=== PATIENT | female | born 1935 | race Caucasian/White ===

== ENCOUNTER 2021-09-08 15:51 | Inpatient (IN) | payer BC ==
[2021-09-08 16:15] VITALS: BMI 21.9
[2021-09-08 18:13] LABS: BASO % 1.2 % (0-2.0); HEMATOCRIT 40.1 % (32.4-45.2); HEMOGLOBIN 13.4 GM/dL (10.7-15.3); LYMPH % 23.7 % (8-40); MCHC 33.3 g/dl (32.0-36.0); MEAN CELL VOLUME 83.9 fl (80-96); MEAN PLT VOLUME 7.3 fl (7.5-11.1); MONO % 7.7 % (3.8-10.2); NEUT % 66.4 % (42.8-82.8); PLATELET COUNT 379 10^3/uL (134-434); RBC 4.79 M/mm3 (3.60-5.2); RDW 14.4 % (11.6-15.6); WHITE BLOOD COUNT 11.8 K/mm3 (4.0-10.0)
[2021-09-08 18:35] LABS: ALBUMIN 3.4 g/dl (3.4-5.0); BLOOD UREA NITROGEN 19.6 mg/dL (7-18); CALCIUM 9.6 mg/dL (8.5-10.1)
[2021-09-08 18:38] LABS: CREATININE 0.9 mg/dL (0.55-1.3)
[2021-09-08 18:40] LABS: BILIRUBIN,TOTAL 0.3 mg/dL (0.2-1); TOT PROT 7.5 g/dl (6.4-8.2)
[2021-09-08 18:47] LABS: PH,URINE 6.5 (5.0-8.0); URINE APPEARANCE CLOUDY; URINE BILIRUBIN NEGATIVE (NEGATIVE); URINE COLOR YELLOW; URINE GLUCOSE (UA) NEGATIVE (NEGATIVE); URINE KETONE NEGATIVE (NEGATIVE); URINE LEUK ESTERASE 3+ (NEGATIVE); URINE NITRITE NEGATIVE (NEGATIVE); URINE PROTEIN TRACE (NEGATIVE); URINE UROBILINOGEN 0.2 mg/dL (0.2-1.0)
[2021-09-08 19:12] LABS: URINE WBC 20-30 /uL (0-25.8)
[2021-09-08 19:13] LABS: EPI CELLS FEW /uL (0-25.1); URINE BACTERIA 2+ /uL (0-1359)
[2021-09-08] MEDS ORDERED: CEFTRIAXONE 1 GM in DEXTROSE 5%-WATER - 100 ML IVPB ONE (19:43)
[2021-09-08] MEDS ORDERED: CEFTRIAXONE 1 GM/50 ML BAG ONE (19:57)
[2021-09-08] MEDS ORDERED: LOSARTAN POTASSIUM 50 MG TABLET PO ONE (20:01)
[2021-09-08] MEDS ORDERED: LOSARTAN POTASSIUM 50 MG TABLET ONE (20:04)
[2021-09-08] MEDS ORDERED: ACETAMINOPHEN 1000 MG/100 ML VIAL IVPB ONE (20:11)
[2021-09-08] MEDS ORDERED: ACETAMINOPHEN INJECTION 100 ML IVPB ONE (20:30)
[2021-09-09 09:04] LABS: BASO % 0.7 % (0-2.0); EOS % 1.5 % (0-4.5); HEMATOCRIT 39.2 % (32.4-45.2); HEMOGLOBIN 13.2 GM/dL (10.7-15.3); LYMPH % 15.1 % (8-40); MCHC 33.6 g/dl (32.0-36.0); MEAN CELL VOLUME 83.2 fl (80-96); MEAN PLT VOLUME 7.2 fl (7.5-11.1); MONO % 6.1 % (3.8-10.2); NEUT % 76.6 % (42.8-82.8); PLATELET COUNT 369 10^3/uL (134-434); RBC 4.71 M/mm3 (3.60-5.2); RDW 14.2 % (11.6-15.6); WHITE BLOOD COUNT 11.1 K/mm3 (4.0-10.0)
[2021-09-09 09:25] LABS: ALBUMIN 3.4 g/dl (3.4-5.0)
[2021-09-09 09:26] LABS: BLOOD UREA NITROGEN 14.4 mg/dL (7-18)
[2021-09-09 09:28] LABS: CREATININE 0.7 mg/dL (0.55-1.3)
[2021-09-09 09:30] LABS: BILIRUBIN,TOTAL 0.5 mg/dL (0.2-1); TOT PROT 7.2 g/dl (6.4-8.2)
[2021-09-09] MEDS ORDERED: DEXTROSE 5%-WATER - 50 ML IVPB ONE (11:13)
[2021-09-09] MEDS ORDERED: cefTRIAXone SODIUM 1 GM VIAL ONE (11:13)
[2021-09-09] MEDS: CEFTRIAXONE 1 GM in DEXTROSE 5%-WATER - 50 ML IVPB SCH (11:19)
[2021-09-09] MEDS: FLUTICASONE PROP 0.05% 16 GM NASAL SPRAY NS SCH ×2 (11:20→21:41)
[2021-09-09] MEDS: LOSARTAN POTASSIUM 50 MG TABLET PO SCH (11:20)
[2021-09-09] MEDS: PANTOPRAZOLE SODIUM 40 MG VIAL IVPUSH SCH (11:44)
[2021-09-09] MEDS: ACETAMINOPHEN 1000 MG/100 ML VIAL IVPB PRN ×2 (13:20→20:48)
[2021-09-09] MEDS ORDERED: PT OWN MED DRAWER 7, Y5N ONE (21:00)
[2021-09-10 09:52] VITALS: BP 132/71; PULSE 100; TEMP 97.5
[2021-09-10] MEDS ORDERED: cefTRIAXone SODIUM 1 GM VIAL ONE (10:13)
[2021-09-10] MEDS ORDERED: DEXTROSE 5%-WATER - 50 ML IVPB ONE (10:13)
[2021-09-10] MEDS: FLUTICASONE PROP 0.05% 16 GM NASAL SPRAY NS SCH (10:22)
[2021-09-10] MEDS: CEFTRIAXONE 1 GM in DEXTROSE 5%-WATER - 50 ML IVPB SCH (10:22)
[2021-09-10] MEDS: PANTOPRAZOLE SODIUM 40 MG VIAL IVPUSH SCH (10:22)
[2021-09-10] MEDS: LOSARTAN POTASSIUM 50 MG TABLET PO SCH (10:23)
== END 2021-09-10 16:43 | disposition home or self-care (01) | DRG 690 ==
LOC: JER 15:51 → JERBED 20:29 → J6S 09-09 00:06
PROVIDERS: ADMIT Internal Medicine; ATTEND Family Medicine
DX: N39.0 Urinary tract infection, site not specified (principal); D72.829 Elevated white blood cell count, unspecified; I10 Essential (primary) hypertension; E78.5 Hyperlipidemia, unspecified
CPT/HCPCS: 36415; 71045-TC-FY; 80053; 81003; 85025; 87040; 87086; 93005; 93010; 99285-25; C9803; J0131; U0003; U0005

== ENCOUNTER 2022-02-16 20:22 | Observation (INO) | payer BC ==
[2022-02-16 21:25] LABS: BASO % 0.9 % (0-2.0); EOS % 0.4 % (0-4.5); HEMATOCRIT 40.3 % (32.4-45.2); HEMOGLOBIN 13.3 GM/dL (10.7-15.3); MEAN CELL VOLUME 81.9 fl (80-96); MEAN PLT VOLUME 6.8 fl (7.5-11.1); MONO % 9.2 % (3.8-10.2); NEUT % 79.5 % (42.8-82.8); PLATELET COUNT 317 10^3/uL (134-434); RBC 4.92 M/mm3 (3.60-5.2); RDW 14.3 % (11.6-15.6); WHITE BLOOD COUNT 14.5 K/mm3 (4.0-10.0)
[2022-02-16] MEDS ORDERED: ACETAMINOPHEN 1000 MG/100 ML BAG IVPB ONE (21:32)
[2022-02-16] MEDS ORDERED: ACETAMINOPHEN INJECTION 100 ML IVPB ONE (21:35)
[2022-02-16] MEDS ORDERED: KETOROLAC TROMETHAMINE 15 MG/ML VIAL IVPUSH ONE (21:41)
[2022-02-16 21:51] LABS: CALCIUM 9.8 mg/dL (8.5-10.1)
[2022-02-16 21:52] LABS: ALBUMIN 3.6 g/dl (3.4-5.0); BLOOD UREA NITROGEN 27.7 mg/dL (7-18); MAGNESIUM 2.2 mg/dL (1.8-2.4)
[2022-02-16 21:54] LABS: CREATININE 0.8 mg/dL (0.55-1.3)
[2022-02-16 21:56] LABS: BILIRUBIN,TOTAL 0.4 mg/dL (0.2-1); TOT PROT 7.3 g/dl (6.4-8.2)
[2022-02-16] MEDS ORDERED: KETOROLAC TROMETHAMINE 15 MG/ML VIAL ONE (22:05)
[2022-02-16] MEDS ORDERED: ONDANSETRON 4 MG/2 ML VIAL IVPUSH ONE (23:59)
[2022-02-16] MEDS ORDERED: morphine CARPU-JECT 4 MG/1 ML DISP.SYRIN IVPUSH ONE (23:59)
[2022-02-17] MEDS ORDERED: morphine SULFATE 4 MG/ML VIAL ONE (00:28)
[2022-02-17] MEDS ORDERED: ONDANSETRON 4 MG/2 ML VIAL ONE (00:28)
[2022-02-17 00:36] LABS: EPI CELLS 26 /uL (0-25.1); HYALINE CASTS 2 /uL (0-3.1); URINE APPEARANCE CLEAR; URINE BACTERIA 11 /uL (0-1359); URINE BILIRUBIN NEGATIVE (NEGATIVE); URINE COLOR YELLOW; URINE GLUCOSE (UA) NEGATIVE (NEGATIVE); URINE KETONE 1+ (NEGATIVE); URINE LEUK ESTERASE 1+ (NEGATIVE); URINE NITRITE NEGATIVE (NEGATIVE); URINE PROTEIN 1+ (NEGATIVE); URINE UROBILINOGEN 0.2 mg/dL (0.2-1.0); URINE WBC 155 /uL (0-25.8)
[2022-02-17] MEDS ORDERED: CEFTRIAXONE 1 GM in DEXTROSE 5%-WATER - 100 ML IVPB ONE (01:08)
[2022-02-17] MEDS ORDERED: CEFTRIAXONE 1 GM/50 ML BAG ONE (01:52)
[2022-02-17] MEDS ORDERED: MINERAL OIL ENEMA 133 ML ENEMA PR ONE (02:23)
[2022-02-17] MEDS ORDERED: SODIUM CHLORIDE 500 ML IV STA (02:30)
[2022-02-17 03:16] LABS: URINE RBC 51.9 /uL (0-23.9); YEAST MODERATE (NEGATIVE)
[2022-02-17] MEDS ORDERED: SODIUM PHOSPHATE/NA BIPHOS 133 ML ENEMA RC ONE (03:48)
[2022-02-17] MEDS ORDERED: ACETAMINOPHEN 1000 MG/100 ML BAG IVPB PRN (04:00)
[2022-02-17] MEDS: DEXTROSE 5%-NORMAL SALINE 1,000 ML IV SCH (05:14)
[2022-02-17] MEDS ORDERED: SODIUM PHOSPHATE/NA BIPHOS 133 ML ENEMA RC PRN (05:49)
[2022-02-17 09:18] LABS: BASO % 0.2 % (0-2.0); EOS % 0.1 % (0-4.5); HEMATOCRIT 39.8 % (32.4-45.2); HEMOGLOBIN 13.3 GM/dL (10.7-15.3); LYMPH % 3.8 % (8-40); MCH 27.2 pg (25.7-33.7); MCHC 33.3 g/dl (32.0-36.0); MEAN CELL VOLUME 81.6 fl (80-96); MEAN PLT VOLUME 7.2 fl (7.5-11.1); MONO % 6.1 % (3.8-10.2); NEUT % 89.8 % (42.8-82.8); PLATELET COUNT 297 10^3/uL (134-434); RBC 4.87 M/mm3 (3.60-5.2); RDW 14.2 % (11.6-15.6); WHITE BLOOD COUNT 15.1 K/mm3 (4.0-10.0)
[2022-02-17] MEDS: PANTOPRAZOLE 40 MG TABLET PO SCH (09:19)
[2022-02-17] MEDS: amLODIPine BESYLATE 5 MG TABLET (FP) PO SCH (09:19)
[2022-02-17] MEDS: LOSARTAN POTASSIUM 50 MG TABLET PO SCH (09:19)
[2022-02-17 09:33] LABS: CALCIUM 8.6 mg/dL (8.5-10.1)
[2022-02-17 09:34] LABS: BLOOD UREA NITROGEN 21.6 mg/dL (7-18)
[2022-02-17 09:37] LABS: CREATININE 0.7 mg/dL (0.55-1.3)
[2022-02-17] MEDS: AMMONIUM LACTATE 12% LOTION 225 GM BOTTLE TP SCH (14:39)
[2022-02-17] MEDS: POLYETHYLENE GLYCOL (HEALTHYLAX) 3350 17 GM PACKET PO SCH ×2 (14:39→21:43)
[2022-02-17] MEDS ORDERED: CEFTRIAXONE 1 GM in DEXTROSE 5%-WATER - 50 ML IVPB SCH (22:00)
[2022-02-18] MEDS: DEXTROSE 5%-NORMAL SALINE 1,000 ML IV SCH ×3 (01:16→22:03)
[2022-02-18] MEDS: POLYETHYLENE GLYCOL (HEALTHYLAX) 3350 17 GM PACKET PO SCH ×3 (05:34→21:56)
[2022-02-18 08:42] LABS: BASO % 0.8 % (0-2.0); EOS % 1.9 % (0-4.5); HEMATOCRIT 38.3 % (32.4-45.2); HEMOGLOBIN 12.5 GM/dL (10.7-15.3); LYMPH % 10.7 % (8-40); MCH 27.1 pg (25.7-33.7); MCHC 32.7 g/dl (32.0-36.0); MEAN PLT VOLUME 7.3 fl (7.5-11.1); MONO % 8.9 % (3.8-10.2); NEUT % 77.7 % (42.8-82.8); PLATELET COUNT 320 10^3/uL (134-434); RBC 4.61 M/mm3 (3.60-5.2); RDW 14.5 % (11.6-15.6); WHITE BLOOD COUNT 12.8 K/mm3 (4.0-10.0)
[2022-02-18 08:50] LABS: INR 1.06 (0.83-1.09); PROTHROMBIN TIME (PATIENT) 12.2 SEC (9.7-13.0)
[2022-02-18 08:53] LABS: ACTIVATED PTT 22.5 SECONDS (25.2-36.5)
[2022-02-18 09:14] LABS: CALCIUM 8.3 mg/dL (8.5-10.1)
[2022-02-18 09:15] LABS: BLOOD UREA NITROGEN 15.2 mg/dL (7-18)
[2022-02-18 09:18] LABS: CREATININE 0.6 mg/dL (0.55-1.3)
[2022-02-18] MEDS: amLODIPine BESYLATE 5 MG TABLET (FP) PO SCH (10:14)
[2022-02-18] MEDS: AMMONIUM LACTATE 12% LOTION 225 GM BOTTLE TP SCH (10:14)
[2022-02-18] MEDS: LOSARTAN POTASSIUM 50 MG TABLET PO SCH (10:14)
[2022-02-18] MEDS: PANTOPRAZOLE 40 MG TABLET PO SCH (10:14)
[2022-02-18] MEDS ORDERED: POTASSIUM CHLORIDE TABS 20 MEQ TABLET.ER (FP) PO ONE (18:27)
[2022-02-18] MEDS ORDERED: ACETAMINOPHEN 1000 MG/100 ML BAG IVPB PRN (18:50)
[2022-02-18] MEDS: LIDOCAINE 5% TOPICAL PATCH TP SCH (19:20)
[2022-02-18] MEDS: LIDOCAINE PATCH REMOVAL MC SCH (21:56)
[2022-02-19] MEDS: DEXTROSE 5%-NORMAL SALINE 1,000 ML IV SCH (06:05)
[2022-02-19] MEDS: POLYETHYLENE GLYCOL (HEALTHYLAX) 3350 17 GM PACKET PO SCH ×4 (09:40→21:03)
[2022-02-19] MEDS: PANTOPRAZOLE 40 MG TABLET PO SCH (09:41)
[2022-02-19] MEDS: amLODIPine BESYLATE 5 MG TABLET (FP) PO SCH (09:41)
[2022-02-19] MEDS: LOSARTAN POTASSIUM 50 MG TABLET PO SCH (09:41)
[2022-02-19] MEDS: LIDOCAINE 5% TOPICAL PATCH TP SCH (09:41)
[2022-02-19] MEDS: AMMONIUM LACTATE 12% LOTION 225 GM BOTTLE TP SCH (09:42)
[2022-02-19 14:08] VITALS: BMI 20.6
[2022-02-19] MEDS: LIDOCAINE PATCH REMOVAL MC SCH (21:04)
[2022-02-20] MEDS: POLYETHYLENE GLYCOL (HEALTHYLAX) 3350 17 GM PACKET PO SCH ×3 (05:07→22:17)
[2022-02-20] MEDS ORDERED: ERGOCALCIFEROL (VIT D2) 50,000 UNIT (1.25 MG) CAPSULE PO SCH (10:00)
[2022-02-20 10:08] LABS: CALCIUM 8.8 mg/dL (8.5-10.1)
[2022-02-20 10:09] LABS: BLOOD UREA NITROGEN 18.6 mg/dL (7-18)
[2022-02-20 10:12] LABS: CREATININE 0.5 mg/dL (0.55-1.3)
[2022-02-20] MEDS: LIDOCAINE 5% TOPICAL PATCH TP SCH (10:26)
[2022-02-20] MEDS: PANTOPRAZOLE 40 MG TABLET PO SCH (10:26)
[2022-02-20] MEDS: amLODIPine BESYLATE 5 MG TABLET (FP) PO SCH (10:26)
[2022-02-20] MEDS: LOSARTAN POTASSIUM 50 MG TABLET PO SCH (10:28)
[2022-02-20] MEDS: CALCIUM 500MG/VIT-D 200 UNITS COMBO TABLET (FP) PO SCH ×2 (10:28→22:18)
[2022-02-20] MEDS: AMMONIUM LACTATE 12% LOTION 225 GM BOTTLE TP SCH (10:29)
[2022-02-20] MEDS: CALCITONIN - SALMON SYNTHETIC 200 UNITS/SPRAY NS SCH (10:49)
[2022-02-20] MEDS: LIDOCAINE PATCH REMOVAL MC SCH (22:25)
[2022-02-20] MEDS ORDERED: ACETAMINOPHEN 325 MG TABLET (FP) PO PRN (23:34)
[2022-02-21] MEDS: POLYETHYLENE GLYCOL (HEALTHYLAX) 3350 17 GM PACKET PO SCH ×2 (05:31→13:55)
[2022-02-21] MEDS ORDERED: CEPHALEXIN MONOHYDRATE 500 MG CAPSULE (UD) PO SCH (10:00)
[2022-02-21] MEDS: CALCIUM 500MG/VIT-D 200 UNITS COMBO TABLET (FP) PO SCH (11:07)
[2022-02-21] MEDS: amLODIPine BESYLATE 5 MG TABLET (FP) PO SCH (11:08)
[2022-02-21] MEDS: LIDOCAINE 5% TOPICAL PATCH TP SCH (11:08)
[2022-02-21] MEDS: PANTOPRAZOLE 40 MG TABLET PO SCH (11:08)
[2022-02-21] MEDS: LOSARTAN POTASSIUM 50 MG TABLET PO SCH (11:08)
[2022-02-21] MEDS: AMMONIUM LACTATE 12% LOTION 225 GM BOTTLE TP SCH (11:09)
[2022-02-21] MEDS: CALCITONIN - SALMON SYNTHETIC 200 UNITS/SPRAY NS SCH (11:50)
[2022-02-21 14:39] VITALS: BP 122/62; PULSE 85; TEMP 98.9
[2022-02-23 12:09] LABS: SARS-CoV-2 NAA Not Detected (Not Detected)
== END 2022-02-21 18:21 ==
LOC: JER 20:22 → JERBED 02-17 02:13 → J8W 02-17 04:47
PROVIDERS: ADMIT Internal Medicine; ATTEND Family Medicine
PROC: 3E033NZ Introduction of Analgesics, Hypnotics, Sedatives into Peripheral Vein, Percutaneous Approach (ICD-10-PCS; principal; 2022-02-17)
PROC: 3E03329 Introduction of Other Anti-infective into Peripheral Vein, Percutaneous Approach (ICD-10-PCS; 2022-02-17)
PROC: 3E0333Z Introduction of Anti-inflammatory into Peripheral Vein, Percutaneous Approach (ICD-10-PCS; 2022-02-17)
PROC: 3E0337Z Introduction of Electrolytic and Water Balance Substance into Peripheral Vein, Percutaneous Approach (ICD-10-PCS; 2022-02-17)
DX: I25.10 Atherosclerotic heart disease of native coronary artery without angina pectoris (principal); I10 Essential (primary) hypertension; E78.5 Hyperlipidemia, unspecified; K21.9 Gastro-esophageal reflux disease without esophagitis; Z85.3 Personal history of malignant neoplasm of breast; R32 Unspecified urinary incontinence; M54.16 Radiculopathy, lumbar region; N20.0 Calculus of kidney; M54.9 Dorsalgia, unspecified; N39.0 Urinary tract infection, site not specified; D72.829 Elevated white blood cell count, unspecified; R10.9 Unspecified abdominal pain; R19.5 Other fecal abnormalities; M62.81 Muscle weakness (generalized); Z72.0 Tobacco use; Z88.8 Allergy status to other drugs, medicaments and biological substances; Z88.2 Allergy status to sulfonamides
CPT/HCPCS: 36415; 72128-TC; 72131-TC; 74018-TC-FY; 74177-TC; 80048; 80053; 81003; 83605; 83690; 83735; 84439; 84443; 84481; 85025; 85610; 85730; 86140; 87086; 87186; 93005; 93010; 96361; 96367; 96374; 96375; 97116-GP; 97161-GP; 99285-25; C9803-CS; G0378; Q9967; U0003; U0005

== ENCOUNTER 2022-09-27 14:31 | Inpatient (IN) | payer BC ==
[2022-09-27 16:10] LABS: HEMOGLOBIN 13.7 GM/dL (10.7-15.3); MCH 26.8 pg (25.7-33.7); MCHC 32.5 g/dl (32.0-36.0); MEAN CELL VOLUME 82.6 fl (80-96); MEAN PLT VOLUME 6.9 fl (7.5-11.1); PLATELET COUNT 344 10^3/uL (134-434); RBC 5.09 M/mm3 (3.60-5.2); RDW 14.5 % (11.6-15.6); WHITE BLOOD COUNT 19.6 K/mm3 (4.0-10.0)
[2022-09-27 16:13] LABS: EPI CELLS 4 /uL (0-25.1); HYALINE CASTS 1 /uL (0-3.1); PH,URINE 5.5 (5.0-8.0); URINE APPEARANCE CLOUDY; URINE BACTERIA 179 /uL (0-1359); URINE BILIRUBIN NEGATIVE (NEGATIVE); URINE COLOR YELLOW; URINE GLUCOSE (UA) NEGATIVE (NEGATIVE); URINE KETONE NEGATIVE (NEGATIVE); URINE LEUK ESTERASE 3+ (NEGATIVE); URINE NITRITE NEGATIVE (NEGATIVE); URINE PROTEIN 1+ (NEGATIVE); URINE UROBILINOGEN 0.2 mg/dL (0.2-1.0); URINE WBC 288 /uL (0-25.8)
[2022-09-27 16:33] LABS: ALBUMIN 3.8 g/dl (3.4-5.0); CALCIUM 9.6 mg/dL (8.5-10.1)
[2022-09-27 16:34] LABS: MAGNESIUM 2.2 mg/dL (1.8-2.4)
[2022-09-27 16:37] LABS: CREATININE 0.9 mg/dL (0.55-1.3)
[2022-09-27 16:38] LABS: BILIRUBIN,TOTAL 0.5 mg/dL (0.2-1); TOT PROT 7.4 g/dl (6.4-8.2)
[2022-09-27] MEDS ORDERED: CEFTRIAXONE 1 GM in DEXTROSE 5%-WATER - 100 ML IVPB ONE (16:59)
[2022-09-27] MEDS ORDERED: CEFTRIAXONE 1 GM/50 ML BAG ONE (17:16)
[2022-09-27 17:42] LABS: ANISOCYTOSIS 0; MACROCYTOSIS 0
[2022-09-27 18:08] LABS: INR 1.04 (0.83-1.09)
[2022-09-27 18:11] LABS: ACTIVATED PTT 27.2 SECONDS (25.2-36.5)
[2022-09-27 19:08] LABS: URINE RBC 154 /uL (0-23.9); YEAST PRESENT (NEGATIVE)
[2022-09-27] MEDS ORDERED: DOCUSATE SODIUM 100 MG CAPSULE (FP) PO PRN (19:33)
[2022-09-27] MEDS ORDERED: ACETAMINOPHEN 325 MG TABLET (FP) PO PRN (19:33)
[2022-09-27] MEDS ORDERED: SODIUM CHLORIDE 1,000 ML IV SCH (19:45)
[2022-09-27 21:05] VITALS: BMI 21.9
[2022-09-27] MEDS ORDERED: ACETAMINOPHEN 1000 MG/100 ML BAG IVPB ONE (21:59)
[2022-09-28 08:02] LABS: BASO % 0.3 % (0-2.0); EOS % 2.1 % (0-4.5); HEMATOCRIT 41.1 % (32.4-45.2); HEMOGLOBIN 13.4 GM/dL (10.7-15.3); LYMPH % 6.2 % (8-40); MCH 27.1 pg (25.7-33.7); MCHC 32.6 g/dl (32.0-36.0); MEAN CELL VOLUME 83.2 fl (80-96); MEAN PLT VOLUME 6.9 fl (7.5-11.1); MONO % 7.5 % (3.8-10.2); NEUT % 83.9 % (42.8-82.8); PLATELET COUNT 314 10^3/uL (134-434); RBC 4.94 M/mm3 (3.60-5.2); RDW 14.2 % (11.6-15.6); WHITE BLOOD COUNT 13.9 K/mm3 (4.0-10.0)
[2022-09-28 08:38] LABS: BLOOD UREA NITROGEN 14.1 mg/dL (7-18)
[2022-09-28 08:40] LABS: CALCIUM 8.5 mg/dL (8.5-10.1); MAGNESIUM 2.2 mg/dL (1.8-2.4)
[2022-09-28 08:41] LABS: CREATININE 0.7 mg/dL (0.55-1.3)
[2022-09-28] MEDS: ENOXAPARIN NA (PORCINE) 40 MG/0.4 ML DISP.SYRIN SQ SCH (10:56)
[2022-09-28] MEDS: amLODIPine BESYLATE 5 MG TABLET (FP) PO SCH (10:56)
[2022-09-28] MEDS: CEFTRIAXONE 1 GM in DEXTROSE 5%-WATER - 50 ML IVPB SCH (10:56)
[2022-09-28] MEDS: AMINO ACIDS/PROTEIN HYDROLYS 30 ML LIQUID.PKT PO SCH (16:54)
[2022-09-28] MEDS: ASCORBIC ACID 250 MG TABLET (FP) PO SCH (22:13)
[2022-09-29] MEDS: AMINO ACIDS/PROTEIN HYDROLYS 30 ML LIQUID.PKT PO SCH ×2 (08:50→16:42)
[2022-09-29] MEDS: ASCORBIC ACID 250 MG TABLET (FP) PO SCH ×2 (10:01→22:27)
[2022-09-29] MEDS: amLODIPine BESYLATE 5 MG TABLET (FP) PO SCH (10:03)
[2022-09-29] MEDS: ENOXAPARIN NA (PORCINE) 40 MG/0.4 ML DISP.SYRIN SQ SCH (10:03)
[2022-09-29] MEDS: MULTIVITAMINS (DAILY MVI) TABLET (FP) PO SCH (10:03)
[2022-09-29] MEDS: CEFTRIAXONE 1 GM in DEXTROSE 5%-WATER - 50 ML IVPB SCH (10:04)
[2022-09-30] MEDS: AMINO ACIDS/PROTEIN HYDROLYS 30 ML LIQUID.PKT PO SCH ×2 (09:03→18:04)
[2022-09-30] MEDS: ENOXAPARIN NA (PORCINE) 40 MG/0.4 ML DISP.SYRIN SQ SCH (09:03)
[2022-09-30] MEDS: CEFTRIAXONE 1 GM in DEXTROSE 5%-WATER - 50 ML IVPB SCH (09:03)
[2022-09-30] MEDS: MULTIVITAMINS (DAILY MVI) TABLET (FP) PO SCH (09:04)
[2022-09-30] MEDS: amLODIPine BESYLATE 5 MG TABLET (FP) PO SCH (09:04)
[2022-09-30] MEDS: ASCORBIC ACID 250 MG TABLET (FP) PO SCH ×2 (16:43→22:07)
[2022-10-01] MEDS: AMINO ACIDS/PROTEIN HYDROLYS 30 ML LIQUID.PKT PO SCH ×2 (10:59→16:34)
[2022-10-01] MEDS: ENOXAPARIN NA (PORCINE) 40 MG/0.4 ML DISP.SYRIN SQ SCH (10:59)
[2022-10-01] MEDS: CEFTRIAXONE 1 GM in DEXTROSE 5%-WATER - 50 ML IVPB SCH (10:59)
[2022-10-01] MEDS: ASCORBIC ACID 250 MG TABLET (FP) PO SCH ×2 (11:00→22:56)
[2022-10-01] MEDS: amLODIPine BESYLATE 5 MG TABLET (FP) PO SCH (11:00)
[2022-10-01] MEDS: MULTIVITAMINS (DAILY MVI) TABLET (FP) PO SCH (11:00)
[2022-10-01] MEDS: CEFUROXIME AXETIL 250 MG TABLET PO SCH (22:02)
[2022-10-01 22:54] VITALS: RESP 20
[2022-10-02] MEDS: AMINO ACIDS/PROTEIN HYDROLYS 30 ML LIQUID.PKT PO SCH (11:11)
[2022-10-02] MEDS: ENOXAPARIN NA (PORCINE) 40 MG/0.4 ML DISP.SYRIN SQ SCH (11:12)
[2022-10-02] MEDS: amLODIPine BESYLATE 5 MG TABLET (FP) PO SCH (11:12)
[2022-10-02] MEDS: CEFUROXIME AXETIL 250 MG TABLET PO SCH (11:12)
[2022-10-02] MEDS: ASCORBIC ACID 250 MG TABLET (FP) PO SCH (11:12)
[2022-10-02] MEDS: MULTIVITAMINS (DAILY MVI) TABLET (FP) PO SCH (11:12)
[2022-10-02 14:38] VITALS: BP 123/60; PULSE 85; TEMP 97.5
== END 2022-10-02 17:30 | DRG 689 ==
LOC: JER 14:31 → JERBED 15:26 → J7W 18:49
PROVIDERS: ADMIT Internal Medicine; ATTEND Family Medicine
DX: N39.0 Urinary tract infection, site not specified (principal); G92.8 Other toxic encephalopathy; S70.01XA Contusion of right hip, initial encounter; I10 Essential (primary) hypertension; E78.5 Hyperlipidemia, unspecified; K21.9 Gastro-esophageal reflux disease without esophagitis; Z85.3 Personal history of malignant neoplasm of breast; L89.312 Pressure ulcer of right buttock, stage 2; L89.322 Pressure ulcer of left buttock, stage 2; L89.152 Pressure ulcer of sacral region, stage 2; D72.829 Elevated white blood cell count, unspecified; W19.XXXA Unspecified fall, initial encounter; Y93.9 Activity, unspecified; Y92.89 Other specified places as the place of occurrence of the external cause; Y99.9 Unspecified external cause status
CPT/HCPCS: 0241U-QW; 36415; 70450-TC; 71045-TC-FY; 72125-TC; 72170-TC-FY; 73552-TC-RT-FY; 80048; 80053; 81003; 82550; 82553; 83735; 84484; 85025; 85610; 85730; 86850; 86900; 86901; 87040; 87086; 87186; 93005; 93010; 97116-GP; 97161-GP; 99285-25; C9803-CS; U0003; U0005

== ENCOUNTER 2022-10-31 16:13 | Inpatient (IN) | payer BC ==
[2022-10-31 16:55] VITALS: BMI 20.7
[2022-10-31] MEDS ORDERED: VANCOMYCIN 1 GM in D5W (PRE-DOCKED) 1,000 MG/250 ML IVPB ONE (20:02)
[2022-10-31] MEDS ORDERED: PIPERACILLIN/TAZOB 4.5 GM 4.5 GM in DEXTROSE 5%-WATER 100 ML IVPB ONE (20:04)
[2022-10-31] MEDS ORDERED: ACETAMINOPHEN 1000 MG/100 ML BAG IVPB ONE (20:06)
[2022-10-31 20:25] LABS: VENOUS BASE EXCESS -0.9 mmol/L (-2-2); VENOUS O2 SATURATION 42.2 % (70-80); VENOUS PCO2 41.1 mmHg (38-52); VENOUS PH 7.386 (7.310-7.410)
[2022-10-31] MEDS ORDERED: morphine CARPU-JECT 2 MG/1 ML DISP.SYRIN IVPUSH ONE (20:45)
[2022-10-31 21:14] LABS: HEMATOCRIT 38.7 % (32.4-45.2); HEMOGLOBIN 12.5 GM/dL (10.7-15.3); MCH 26.9 pg (25.7-33.7); MCHC 32.3 g/dl (32.0-36.0); MEAN CELL VOLUME 83.1 fl (80-96); MEAN PLT VOLUME 7.5 fl (7.5-11.1); PLATELET COUNT 365 10^3/uL (134-434); RBC 4.65 M/mm3 (3.60-5.2); RDW 14.9 % (11.6-15.6); WHITE BLOOD COUNT 26.7 K/mm3 (4.0-10.0)
[2022-10-31 21:22] LABS: INR 1.08 (0.83-1.09); PROTHROMBIN TIME (PATIENT) 12.4 SEC (9.7-13.0)
[2022-10-31 21:25] LABS: ACTIVATED PTT 26.7 SECONDS (25.2-36.5)
[2022-10-31 21:57] LABS: CALCIUM 9.3 mg/dL (8.5-10.1)
[2022-10-31 21:58] LABS: ALBUMIN 3.5 g/dl (3.4-5.0); BLOOD UREA NITROGEN 30.2 mg/dL (7-18); MAGNESIUM 2.2 mg/dL (1.8-2.4)
[2022-10-31 22:01] LABS: CREATININE 1.2 mg/dL (0.55-1.3)
[2022-10-31 22:02] LABS: BILIRUBIN,TOTAL 0.5 mg/dL (0.2-1); TOT PROT 7.2 g/dl (6.4-8.2)
[2022-10-31 22:06] LABS: N-TERMINAL BNP 430.6 pg/ml (5-450)
[2022-10-31] MEDS ORDERED: PIPERACILLIN/TAZOB 4.5 GM 4.5 GM/100 ML BAG IVPB ONE (22:11)
[2022-10-31] MEDS ORDERED: ACETAMINOPHEN INJECTION 100 ML IVPB ONE (22:11)
[2022-10-31 22:26] LABS: ANISOCYTOSIS 0; MACROCYTOSIS 0
[2022-10-31 22:42] LABS: EPI CELLS 13 /uL (0-25.1); HYALINE CASTS 0 /uL (0-3.1); URINE APPEARANCE CLEAR; URINE BACTERIA 35 /uL (0-1359); URINE BILIRUBIN NEGATIVE (NEGATIVE); URINE COLOR YELLOW; URINE GLUCOSE (UA) NEGATIVE (NEGATIVE); URINE KETONE NEGATIVE (NEGATIVE); URINE LEUK ESTERASE 2+ (NEGATIVE); URINE NITRITE NEGATIVE (NEGATIVE); URINE PROTEIN TRACE (NEGATIVE); URINE RBC 45 /uL (0-23.9); URINE UROBILINOGEN 0.2 mg/dL (0.2-1.0); URINE WBC 139 /uL (0-25.8)
[2022-11-01] MEDS: D5-1/2NS+20 MEQ KCL - 20 MEQ/1,000 ML INFUS.BAG IV SCH (09:04)
[2022-11-01] MEDS ORDERED: amLODIPine BESYLATE 5 MG TABLET (FP) ONE (09:11)
[2022-11-01] MEDS ORDERED: HEPARIN NA (PORCINE) 5,000 UNITS/ML 1ML VIAL ONE (09:11)
[2022-11-01] MEDS ORDERED: CEFTRIAXONE 1 GM/50 ML BAG ONE (09:11)
[2022-11-01] MEDS ORDERED: LOSARTAN POTASSIUM 50 MG TABLET ONE (09:11)
[2022-11-01] MEDS ORDERED: PANTOPRAZOLE 40 MG TABLET PO ONE (09:11)
[2022-11-01] MEDS: CEFTRIAXONE 1 GM in DEXTROSE 5%-WATER - 50 ML IVPB SCH (09:32)
[2022-11-01] MEDS: LOSARTAN POTASSIUM 50 MG TABLET PO SCH (09:32)
[2022-11-01] MEDS: amLODIPine BESYLATE 5 MG TABLET (FP) PO SCH (09:32)
[2022-11-01] MEDS: PANTOPRAZOLE 40 MG TABLET PO SCH (09:32)
[2022-11-01] MEDS: HEPARIN NA (PORCINE) 5,000 UNITS/ML 1ML VIAL SQ SCH (09:32)
[2022-11-01] MEDS: POLYETHYLENE GLYCOL (HEALTHYLAX) 3350 17 GM PACKET PO SCH (13:33)
[2022-11-01] MEDS: traMADol HCL 50 MG TABLET PO PRN ×2 (14:45→18:14)
[2022-11-01] MEDS ORDERED: traMADol HCL 50 MG TABLET ONE (18:09)
[2022-11-02] MEDS ORDERED: POLYETHYLENE GLYCOL (HEALTHYLAX) 3350 17 GM PACKET ONE (03:20)
[2022-11-02] MEDS: POLYETHYLENE GLYCOL (HEALTHYLAX) 3350 17 GM PACKET PO SCH ×3 (03:21→15:47)
[2022-11-02] MEDS: D5-1/2NS+20 MEQ KCL - 20 MEQ/1,000 ML INFUS.BAG IV SCH (08:30)
[2022-11-02] MEDS: CEFTRIAXONE 1 GM in DEXTROSE 5%-WATER - 50 ML IVPB SCH (09:30)
[2022-11-02] MEDS ORDERED: traMADol HCL 50 MG TABLET ONE (09:38)
[2022-11-02] MEDS ORDERED: PANTOPRAZOLE 40 MG TABLET PO ONE (09:39)
[2022-11-02] MEDS ORDERED: amLODIPine BESYLATE 5 MG TABLET (FP) ONE (09:39)
[2022-11-02] MEDS ORDERED: LOSARTAN POTASSIUM 50 MG TABLET ONE (09:39)
[2022-11-02] MEDS ORDERED: CEFTRIAXONE 1 GM/50 ML BAG ONE (09:40)
[2022-11-02] MEDS ORDERED: HEPARIN NA (PORCINE) 5,000 UNITS/ML 1ML VIAL ONE (09:40)
[2022-11-02] MEDS: LOSARTAN POTASSIUM 50 MG TABLET PO SCH (10:03)
[2022-11-02] MEDS: HEPARIN NA (PORCINE) 5,000 UNITS/ML 1ML VIAL SQ SCH (10:03)
[2022-11-02] MEDS: PANTOPRAZOLE 40 MG TABLET PO SCH (10:04)
[2022-11-02] MEDS: amLODIPine BESYLATE 5 MG TABLET (FP) PO SCH (10:04)
[2022-11-02] MEDS: traMADol HCL 50 MG TABLET PO PRN (10:04)
[2022-11-02 12:32] LABS: BASO % 0.3 % (0-2.0); EOS % 1.6 % (0-4.5); HEMATOCRIT 33.9 % (32.4-45.2); HEMOGLOBIN 10.7 GM/dL (10.7-15.3); INR 1.03 (0.83-1.09); LYMPH % 9.2 % (8-40); MCH 26.4 pg (25.7-33.7); MCHC 31.5 g/dl (32.0-36.0); MEAN PLT VOLUME 7.3 fl (7.5-11.1); MONO % 7.9 % (3.8-10.2); PLATELET COUNT 320 10^3/uL (134-434); PROTHROMBIN TIME (PATIENT) 11.8 SEC (9.7-13.0); RBC 4.04 M/mm3 (3.60-5.2); RDW 14.8 % (11.6-15.6); WHITE BLOOD COUNT 17.3 K/mm3 (4.0-10.0)
[2022-11-02 12:45] LABS: BLOOD UREA NITROGEN 23.4 mg/dL (7-18); CALCIUM 8.8 mg/dL (8.5-10.1)
[2022-11-02 12:48] LABS: CREATININE 0.8 mg/dL (0.55-1.3)
[2022-11-02 12:50] LABS: BILIRUBIN,TOTAL 0.3 mg/dL (0.2-1); TOT PROT 6.8 g/dl (6.4-8.2)
[2022-11-03] MEDS: HEPARIN NA (PORCINE) 5,000 UNITS/ML 1ML VIAL SQ SCH ×3 (00:28→22:38)
[2022-11-03] MEDS: POLYETHYLENE GLYCOL (HEALTHYLAX) 3350 17 GM PACKET PO SCH ×4 (00:28→22:41)
[2022-11-03] MEDS: traMADol HCL 50 MG TABLET PO PRN ×3 (00:32→22:39)
[2022-11-03 08:13] LABS: BASO % 0.2 % (0-2.0); EOS % 2.1 % (0-4.5); HEMATOCRIT 33.7 % (32.4-45.2); HEMOGLOBIN 10.6 GM/dL (10.7-15.3); LYMPH % 8.7 % (8-40); MCH 26.1 pg (25.7-33.7); MCHC 31.3 g/dl (32.0-36.0); MEAN CELL VOLUME 83.4 fl (80-96); MEAN PLT VOLUME 7.1 fl (7.5-11.1); MONO % 7.1 % (3.8-10.2); NEUT % 81.9 % (42.8-82.8); PLATELET COUNT 343 10^3/uL (134-434); RBC 4.05 M/mm3 (3.60-5.2); RDW 14.4 % (11.6-15.6); WHITE BLOOD COUNT 14.9 K/mm3 (4.0-10.0)
[2022-11-03 08:33] LABS: BLOOD UREA NITROGEN 18.2 mg/dL (7-18); CALCIUM 9.2 mg/dL (8.5-10.1)
[2022-11-03 08:37] LABS: CREATININE 0.7 mg/dL (0.55-1.3)
[2022-11-03 08:38] LABS: BILIRUBIN,TOTAL 0.5 mg/dL (0.2-1); TOT PROT 6.8 g/dl (6.4-8.2)
[2022-11-03] MEDS: CEFTRIAXONE 1 GM in DEXTROSE 5%-WATER - 50 ML IVPB SCH (09:40)
[2022-11-03] MEDS: amLODIPine BESYLATE 5 MG TABLET (FP) PO SCH (09:41)
[2022-11-03] MEDS: LOSARTAN POTASSIUM 50 MG TABLET PO SCH (09:41)
[2022-11-03] MEDS: PANTOPRAZOLE 40 MG TABLET PO SCH (09:42)
[2022-11-03] MEDS: D5-1/2NS+20 MEQ KCL - 20 MEQ/1,000 ML INFUS.BAG IV SCH (11:10)
[2022-11-04] MEDS: POLYETHYLENE GLYCOL (HEALTHYLAX) 3350 17 GM PACKET PO SCH ×3 (06:55→21:27)
[2022-11-04] MEDS: traMADol HCL 50 MG TABLET PO PRN (06:57)
[2022-11-04] MEDS: HEPARIN NA (PORCINE) 5,000 UNITS/ML 1ML VIAL SQ SCH ×2 (09:17→21:27)
[2022-11-04] MEDS: amLODIPine BESYLATE 5 MG TABLET (FP) PO SCH (09:17)
[2022-11-04] MEDS: PANTOPRAZOLE 40 MG TABLET PO SCH (09:17)
[2022-11-04] MEDS: D5-1/2NS+20 MEQ KCL - 20 MEQ/1,000 ML INFUS.BAG IV SCH (09:17)
[2022-11-04] MEDS: LOSARTAN POTASSIUM 50 MG TABLET PO SCH (09:17)
[2022-11-04] MEDS: ACETAMINOPHEN 325 MG TABLET (FP) PO PRN (21:28)
[2022-11-05] MEDS: D5-1/2NS+20 MEQ KCL - 20 MEQ/1,000 ML INFUS.BAG IV SCH ×3 (05:00→18:27)
[2022-11-05] MEDS: POLYETHYLENE GLYCOL (HEALTHYLAX) 3350 17 GM PACKET PO SCH ×3 (06:37→21:06)
[2022-11-05 08:16] LABS: HEMATOCRIT 34.2 % (32.4-45.2); HEMOGLOBIN 10.9 GM/dL (10.7-15.3); MCH 26.4 pg (25.7-33.7); MCHC 31.7 g/dl (32.0-36.0); MEAN CELL VOLUME 83.1 fl (80-96); MEAN PLT VOLUME 7.2 fl (7.5-11.1); PLATELET COUNT 421 10^3/uL (134-434); RBC 4.12 M/mm3 (3.60-5.2); RDW 14.2 % (11.6-15.6); WHITE BLOOD COUNT 15.5 K/mm3 (4.0-10.0)
[2022-11-05 08:25] LABS: ALBUMIN 2.9 g/dl (3.4-5.0); BLOOD UREA NITROGEN 22.1 mg/dL (7-18); CALCIUM 8.8 mg/dL (8.5-10.1)
[2022-11-05 08:28] LABS: CREATININE 0.8 mg/dL (0.55-1.3)
[2022-11-05 08:30] LABS: BILIRUBIN,TOTAL 0.5 mg/dL (0.2-1); TOT PROT 6.7 g/dl (6.4-8.2)
[2022-11-05 10:02] LABS: ANISOCYTOSIS 0; HELMET CELLS 0; HOWELL-JOLLY BODIES 0; MACROCYTOSIS 0; OVALOCYTE 0; ROULEAU 0; SICKELED CELLS 0; TARGET CELLS 0; TEAR DROP CELLS 0; TOXIC GRANULATION 0
[2022-11-05] MEDS: amLODIPine BESYLATE 5 MG TABLET (FP) PO SCH (10:10)
[2022-11-05] MEDS: HEPARIN NA (PORCINE) 5,000 UNITS/ML 1ML VIAL SQ SCH ×2 (10:10→21:05)
[2022-11-05] MEDS: LOSARTAN POTASSIUM 50 MG TABLET PO SCH (10:10)
[2022-11-05] MEDS: PANTOPRAZOLE 40 MG TABLET PO SCH (10:10)
[2022-11-05] MEDS: ACETAMINOPHEN 325 MG TABLET (FP) PO PRN (10:11)
[2022-11-06] MEDS: POLYETHYLENE GLYCOL (HEALTHYLAX) 3350 17 GM PACKET PO SCH ×3 (05:25→21:39)
[2022-11-06] MEDS: PANTOPRAZOLE 40 MG TABLET PO SCH (09:30)
[2022-11-06] MEDS: LOSARTAN POTASSIUM 50 MG TABLET PO SCH (09:30)
[2022-11-06] MEDS: D5-1/2NS+20 MEQ KCL - 20 MEQ/1,000 ML INFUS.BAG IV SCH (09:30)
[2022-11-06] MEDS: HEPARIN NA (PORCINE) 5,000 UNITS/ML 1ML VIAL SQ SCH ×2 (09:30→21:39)
[2022-11-06] MEDS: amLODIPine BESYLATE 5 MG TABLET (FP) PO SCH (09:30)
[2022-11-06] MEDS: ACETAMINOPHEN 325 MG TABLET (FP) PO PRN (18:04)
[2022-11-07] MEDS: POLYETHYLENE GLYCOL (HEALTHYLAX) 3350 17 GM PACKET PO SCH ×3 (05:40→21:33)
[2022-11-07] MEDS: ACETAMINOPHEN 325 MG TABLET (FP) PO PRN ×2 (08:40→21:36)
[2022-11-07] MEDS: D5-1/2NS+20 MEQ KCL - 20 MEQ/1,000 ML INFUS.BAG IV SCH (10:24)
[2022-11-07] MEDS: PANTOPRAZOLE 40 MG TABLET PO SCH (10:26)
[2022-11-07] MEDS: amLODIPine BESYLATE 5 MG TABLET (FP) PO SCH (10:27)
[2022-11-07] MEDS: LOSARTAN POTASSIUM 50 MG TABLET PO SCH (10:27)
[2022-11-07] MEDS: HEPARIN NA (PORCINE) 5,000 UNITS/ML 1ML VIAL SQ SCH ×3 (10:28→21:34)
[2022-11-07] MEDS: AMINO ACIDS/PROTEIN HYDROLYS 30 ML LIQUID.PKT PO SCH (17:37)
[2022-11-08] MEDS: POLYETHYLENE GLYCOL (HEALTHYLAX) 3350 17 GM PACKET PO SCH ×3 (07:00→21:23)
[2022-11-08] MEDS: AMINO ACIDS/PROTEIN HYDROLYS 30 ML LIQUID.PKT PO SCH ×2 (08:58→16:34)
[2022-11-08] MEDS: amLODIPine BESYLATE 5 MG TABLET (FP) PO SCH (09:01)
[2022-11-08] MEDS: LOSARTAN POTASSIUM 50 MG TABLET PO SCH (09:01)
[2022-11-08] MEDS: PANTOPRAZOLE 40 MG TABLET PO SCH (09:01)
[2022-11-08] MEDS: ASCORBIC ACID 250 MG TABLET (FP) PO SCH (09:02)
[2022-11-08] MEDS: MULTIVITAMINS THER W-MINERALS COMBO TABLET (FP) PO SCH (09:03)
[2022-11-08] MEDS: ACETAMINOPHEN 325 MG TABLET (FP) PO PRN (10:03)
[2022-11-08] MEDS: D5-1/2NS+20 MEQ KCL - 20 MEQ/1,000 ML INFUS.BAG IV SCH (10:07)
[2022-11-08] MEDS: ENOXAPARIN NA (PORCINE) 40 MG/0.4 ML DISP.SYRIN SQ SCH (10:39)
[2022-11-09] MEDS: POLYETHYLENE GLYCOL (HEALTHYLAX) 3350 17 GM PACKET PO SCH ×3 (06:13→21:26)
[2022-11-09] MEDS: ASCORBIC ACID 250 MG TABLET (FP) PO SCH (09:51)
[2022-11-09] MEDS: ENOXAPARIN NA (PORCINE) 40 MG/0.4 ML DISP.SYRIN SQ SCH (09:51)
[2022-11-09] MEDS: AMINO ACIDS/PROTEIN HYDROLYS 30 ML LIQUID.PKT PO SCH ×2 (09:51→17:00)
[2022-11-09] MEDS: amLODIPine BESYLATE 5 MG TABLET (FP) PO SCH (09:51)
[2022-11-09] MEDS: PANTOPRAZOLE 40 MG TABLET PO SCH (09:51)
[2022-11-09] MEDS: LOSARTAN POTASSIUM 50 MG TABLET PO SCH (09:51)
[2022-11-09] MEDS: MULTIVITAMINS THER W-MINERALS COMBO TABLET (FP) PO SCH (09:52)
[2022-11-09] MEDS: ACETAMINOPHEN 325 MG TABLET (FP) PO PRN (14:45)
[2022-11-10] MEDS: POLYETHYLENE GLYCOL (HEALTHYLAX) 3350 17 GM PACKET PO SCH ×4 (05:27→22:57)
[2022-11-10] MEDS: ACETAMINOPHEN 325 MG TABLET (FP) PO PRN (05:29)
[2022-11-10] MEDS: AMINO ACIDS/PROTEIN HYDROLYS 30 ML LIQUID.PKT PO SCH ×2 (09:45→17:10)
[2022-11-10] MEDS: LOSARTAN POTASSIUM 50 MG TABLET PO SCH (09:46)
[2022-11-10] MEDS: ASCORBIC ACID 250 MG TABLET (FP) PO SCH (09:46)
[2022-11-10] MEDS: PANTOPRAZOLE 40 MG TABLET PO SCH (09:46)
[2022-11-10] MEDS: ENOXAPARIN NA (PORCINE) 40 MG/0.4 ML DISP.SYRIN SQ SCH (09:46)
[2022-11-10] MEDS: MULTIVITAMINS THER W-MINERALS COMBO TABLET (FP) PO SCH (09:46)
[2022-11-10] MEDS: amLODIPine BESYLATE 5 MG TABLET (FP) PO SCH (09:46)
[2022-11-11] MEDS: POLYETHYLENE GLYCOL (HEALTHYLAX) 3350 17 GM PACKET PO SCH ×3 (06:25→23:30)
[2022-11-11] MEDS: ENOXAPARIN NA (PORCINE) 40 MG/0.4 ML DISP.SYRIN SQ SCH (09:27)
[2022-11-11] MEDS: AMINO ACIDS/PROTEIN HYDROLYS 30 ML LIQUID.PKT PO SCH ×2 (09:27→16:58)
[2022-11-11] MEDS: PANTOPRAZOLE 40 MG TABLET PO SCH (09:28)
[2022-11-11] MEDS: ASCORBIC ACID 250 MG TABLET (FP) PO SCH (09:28)
[2022-11-11] MEDS: LOSARTAN POTASSIUM 50 MG TABLET PO SCH (09:28)
[2022-11-11] MEDS: amLODIPine BESYLATE 5 MG TABLET (FP) PO SCH (09:28)
[2022-11-11] MEDS: MULTIVITAMINS THER W-MINERALS COMBO TABLET (FP) PO SCH (09:28)
[2022-11-11] MEDS: ACETAMINOPHEN 325 MG TABLET (FP) PO PRN (09:51)
[2022-11-12] MEDS: POLYETHYLENE GLYCOL (HEALTHYLAX) 3350 17 GM PACKET PO SCH ×3 (07:04→21:48)
[2022-11-12 09:27] LABS: BASO % 0.9 % (0-2.0); EOS % 2.8 % (0-4.5); HEMATOCRIT 33.6 % (32.4-45.2); HEMOGLOBIN 10.9 GM/dL (10.7-15.3); LYMPH % 11.2 % (8-40); MCH 26.9 pg (25.7-33.7); MCHC 32.4 g/dl (32.0-36.0); MEAN CELL VOLUME 83.1 fl (80-96); MEAN PLT VOLUME 6.9 fl (7.5-11.1); MONO % 7.7 % (3.8-10.2); NEUT % 77.4 % (42.8-82.8); PLATELET COUNT 544 10^3/uL (134-434); RBC 4.04 M/mm3 (3.60-5.2); RDW 14.8 % (11.6-15.6); WHITE BLOOD COUNT 13.3 K/mm3 (4.0-10.0)
[2022-11-12 09:44] LABS: ALBUMIN 2.8 g/dl (3.4-5.0); BLOOD UREA NITROGEN 30.3 mg/dL (7-18)
[2022-11-12 09:47] LABS: CREATININE 0.8 mg/dL (0.55-1.3)
[2022-11-12 09:49] LABS: BILIRUBIN,TOTAL 0.7 mg/dL (0.2-1); TOT PROT 6.8 g/dl (6.4-8.2)
[2022-11-12] MEDS: ENOXAPARIN NA (PORCINE) 40 MG/0.4 ML DISP.SYRIN SQ SCH (12:31)
[2022-11-12] MEDS: LOSARTAN POTASSIUM 50 MG TABLET PO SCH (12:31)
[2022-11-12] MEDS: PANTOPRAZOLE 40 MG TABLET PO SCH (12:31)
[2022-11-12] MEDS: AMINO ACIDS/PROTEIN HYDROLYS 30 ML LIQUID.PKT PO SCH ×2 (12:31→17:42)
[2022-11-12] MEDS: amLODIPine BESYLATE 5 MG TABLET (FP) PO SCH (12:31)
[2022-11-12] MEDS: ASCORBIC ACID 250 MG TABLET (FP) PO SCH (12:32)
[2022-11-12] MEDS: MULTIVITAMINS THER W-MINERALS COMBO TABLET (FP) PO SCH (12:32)
[2022-11-13] MEDS: POLYETHYLENE GLYCOL (HEALTHYLAX) 3350 17 GM PACKET PO SCH ×3 (06:35→22:26)
[2022-11-13] MEDS: ENOXAPARIN NA (PORCINE) 40 MG/0.4 ML DISP.SYRIN SQ SCH (10:00)
[2022-11-13] MEDS: PANTOPRAZOLE 40 MG TABLET PO SCH (10:01)
[2022-11-13] MEDS: amLODIPine BESYLATE 5 MG TABLET (FP) PO SCH (10:01)
[2022-11-13] MEDS: LOSARTAN POTASSIUM 50 MG TABLET PO SCH (10:01)
[2022-11-13] MEDS: AMINO ACIDS/PROTEIN HYDROLYS 30 ML LIQUID.PKT PO SCH ×2 (10:01→18:06)
[2022-11-13] MEDS: ASCORBIC ACID 250 MG TABLET (FP) PO SCH (10:02)
[2022-11-13] MEDS: MULTIVITAMINS THER W-MINERALS COMBO TABLET (FP) PO SCH (10:02)
[2022-11-14] MEDS: POLYETHYLENE GLYCOL (HEALTHYLAX) 3350 17 GM PACKET PO SCH ×4 (05:33→23:06)
[2022-11-14 09:24] LABS: HEMOGLOBIN 10.4 GM/dL (10.7-15.3); MCH 26.8 pg (25.7-33.7); MCHC 32.4 g/dl (32.0-36.0); MEAN CELL VOLUME 82.7 fl (80-96); PLATELET COUNT 567 10^3/uL (134-434); RBC 3.87 M/mm3 (3.60-5.2); RDW 14.6 % (11.6-15.6); WHITE BLOOD COUNT 11.1 K/mm3 (4.0-10.0)
[2022-11-14 09:45] LABS: BLOOD UREA NITROGEN 32.1 mg/dL (7-18); CALCIUM 8.9 mg/dL (8.5-10.1)
[2022-11-14 09:46] LABS: BILIRUBIN,TOTAL 0.4 mg/dL (0.2-1)
[2022-11-14 09:48] LABS: ALBUMIN 2.7 g/dl (3.4-5.0); CREATININE 0.6 mg/dL (0.55-1.3); TOT PROT 6.8 g/dl (6.4-8.2)
[2022-11-14] MEDS: ENOXAPARIN NA (PORCINE) 40 MG/0.4 ML DISP.SYRIN SQ SCH (10:34)
[2022-11-14] MEDS: AMINO ACIDS/PROTEIN HYDROLYS 30 ML LIQUID.PKT PO SCH ×2 (10:34→18:29)
[2022-11-14] MEDS: amLODIPine BESYLATE 5 MG TABLET (FP) PO SCH (10:34)
[2022-11-14] MEDS: MULTIVITAMINS THER W-MINERALS COMBO TABLET (FP) PO SCH (10:34)
[2022-11-14] MEDS: ASCORBIC ACID 250 MG TABLET (FP) PO SCH (10:34)
[2022-11-14] MEDS: LOSARTAN POTASSIUM 50 MG TABLET PO SCH (10:34)
[2022-11-14] MEDS: PANTOPRAZOLE 40 MG TABLET PO SCH (10:34)
[2022-11-14] MEDS: ACETAMINOPHEN 325 MG TABLET (FP) PO PRN (10:37)
[2022-11-15] MEDS: POLYETHYLENE GLYCOL (HEALTHYLAX) 3350 17 GM PACKET PO SCH ×3 (05:49→22:32)
[2022-11-15] MEDS: amLODIPine BESYLATE 5 MG TABLET (FP) PO SCH (10:45)
[2022-11-15] MEDS: AMINO ACIDS/PROTEIN HYDROLYS 30 ML LIQUID.PKT PO SCH ×2 (10:45→17:18)
[2022-11-15] MEDS: LOSARTAN POTASSIUM 50 MG TABLET PO SCH (10:45)
[2022-11-15] MEDS: PANTOPRAZOLE 40 MG TABLET PO SCH (10:45)
[2022-11-15] MEDS: MULTIVITAMINS THER W-MINERALS COMBO TABLET (FP) PO SCH (10:46)
[2022-11-15] MEDS: ASCORBIC ACID 250 MG TABLET (FP) PO SCH (10:46)
[2022-11-15] MEDS: ENOXAPARIN NA (PORCINE) 40 MG/0.4 ML DISP.SYRIN SQ SCH (10:47)
[2022-11-16] MEDS: POLYETHYLENE GLYCOL (HEALTHYLAX) 3350 17 GM PACKET PO SCH ×3 (06:18→21:16)
[2022-11-16] MEDS: MULTIVITAMINS THER W-MINERALS COMBO TABLET (FP) PO SCH (10:21)
[2022-11-16] MEDS: amLODIPine BESYLATE 5 MG TABLET (FP) PO SCH (10:21)
[2022-11-16] MEDS: AMINO ACIDS/PROTEIN HYDROLYS 30 ML LIQUID.PKT PO SCH ×2 (10:21→17:55)
[2022-11-16] MEDS: LOSARTAN POTASSIUM 50 MG TABLET PO SCH (10:21)
[2022-11-16] MEDS: PANTOPRAZOLE 40 MG TABLET PO SCH (10:21)
[2022-11-16] MEDS: ASCORBIC ACID 250 MG TABLET (FP) PO SCH (10:21)
[2022-11-16] MEDS: ACETAMINOPHEN 325 MG TABLET (FP) PO PRN (10:37)
[2022-11-16 14:43] VITALS: RESP 20
[2022-11-17] MEDS: POLYETHYLENE GLYCOL (HEALTHYLAX) 3350 17 GM PACKET PO SCH ×4 (05:17→21:18)
[2022-11-17] MEDS: amLODIPine BESYLATE 5 MG TABLET (FP) PO SCH (10:54)
[2022-11-17] MEDS: AMINO ACIDS/PROTEIN HYDROLYS 30 ML LIQUID.PKT PO SCH ×2 (10:54→17:13)
[2022-11-17] MEDS: ASCORBIC ACID 250 MG TABLET (FP) PO SCH (10:54)
[2022-11-17] MEDS: MULTIVITAMINS THER W-MINERALS COMBO TABLET (FP) PO SCH (10:55)
[2022-11-17] MEDS: PANTOPRAZOLE 40 MG TABLET PO SCH (10:55)
[2022-11-17] MEDS: LOSARTAN POTASSIUM 50 MG TABLET PO SCH (10:55)
[2022-11-18] MEDS: AMINO ACIDS/PROTEIN HYDROLYS 30 ML LIQUID.PKT PO SCH ×2 (08:42→16:36)
[2022-11-18] MEDS: PANTOPRAZOLE 40 MG TABLET PO SCH (09:06)
[2022-11-18] MEDS: LOSARTAN POTASSIUM 50 MG TABLET PO SCH (09:09)
[2022-11-18] MEDS: amLODIPine BESYLATE 5 MG TABLET (FP) PO SCH (09:09)
[2022-11-18] MEDS: MULTIVITAMINS THER W-MINERALS COMBO TABLET (FP) PO SCH (09:09)
[2022-11-18] MEDS: COLLAGENASE CLOSTRIDIUM HIST. 30 GRAMS TUBE TP SCH (09:12)
[2022-11-18] MEDS: POLYETHYLENE GLYCOL (HEALTHYLAX) 3350 17 GM PACKET PO SCH (09:12)
[2022-11-18] MEDS: ASCORBIC ACID 250 MG TABLET (FP) PO SCH (09:30)
[2022-11-18] MEDS: ENOXAPARIN NA (PORCINE) 40 MG/0.4 ML DISP.SYRIN SQ SCH (16:36)
[2022-11-19] MEDS: AMINO ACIDS/PROTEIN HYDROLYS 30 ML LIQUID.PKT PO SCH ×2 (07:56→16:42)
[2022-11-19] MEDS: ENOXAPARIN NA (PORCINE) 40 MG/0.4 ML DISP.SYRIN SQ SCH (09:13)
[2022-11-19] MEDS: ASCORBIC ACID 250 MG TABLET (FP) PO SCH (09:14)
[2022-11-19] MEDS: amLODIPine BESYLATE 5 MG TABLET (FP) PO SCH (09:14)
[2022-11-19] MEDS: LOSARTAN POTASSIUM 50 MG TABLET PO SCH (09:14)
[2022-11-19] MEDS: PANTOPRAZOLE 40 MG TABLET PO SCH (09:14)
[2022-11-19] MEDS: POLYETHYLENE GLYCOL (HEALTHYLAX) 3350 17 GM PACKET PO SCH (09:15)
[2022-11-19] MEDS: MULTIVITAMINS THER W-MINERALS COMBO TABLET (FP) PO SCH (09:15)
[2022-11-19] MEDS: COLLAGENASE CLOSTRIDIUM HIST. 30 GRAMS TUBE TP SCH (09:15)
[2022-11-19 10:09] LABS: BASO % 1.1 % (0-2.0); EOS % 3.6 % (0-4.5); HEMATOCRIT 33.9 % (32.4-45.2); HEMOGLOBIN 10.9 GM/dL (10.7-15.3); LYMPH % 19.8 % (8-40); MCH 26.6 pg (25.7-33.7); MEAN PLT VOLUME 6.9 fl (7.5-11.1); MONO % 6.6 % (3.8-10.2); NEUT % 68.9 % (42.8-82.8); PLATELET COUNT 595 10^3/uL (134-434); RBC 4.08 M/mm3 (3.60-5.2); RDW 14.6 % (11.6-15.6); WHITE BLOOD COUNT 9.4 K/mm3 (4.0-10.0)
[2022-11-19 10:28] LABS: ALBUMIN 2.8 g/dl (3.4-5.0)
[2022-11-19 10:29] LABS: BLOOD UREA NITROGEN 34.8 mg/dL (7-18)
[2022-11-19 10:31] LABS: CREATININE 0.7 mg/dL (0.55-1.3)
[2022-11-19 10:33] LABS: BILIRUBIN,TOTAL 0.4 mg/dL (0.2-1); TOT PROT 6.9 g/dl (6.4-8.2)
[2022-11-19] MEDS: ACETAMINOPHEN 325 MG TABLET (FP) PO PRN (15:53)
[2022-11-20] MEDS: AMINO ACIDS/PROTEIN HYDROLYS 30 ML LIQUID.PKT PO SCH (09:27)
[2022-11-20] MEDS: COLLAGENASE CLOSTRIDIUM HIST. 30 GRAMS TUBE TP SCH (09:28)
[2022-11-20] MEDS: amLODIPine BESYLATE 5 MG TABLET (FP) PO SCH (09:28)
[2022-11-20] MEDS: PANTOPRAZOLE 40 MG TABLET PO SCH (09:28)
[2022-11-20] MEDS: ASCORBIC ACID 250 MG TABLET (FP) PO SCH (09:29)
[2022-11-20] MEDS: MULTIVITAMINS THER W-MINERALS COMBO TABLET (FP) PO SCH (09:30)
[2022-11-20] MEDS: POLYETHYLENE GLYCOL (HEALTHYLAX) 3350 17 GM PACKET PO SCH (09:30)
[2022-11-20] MEDS: LOSARTAN POTASSIUM 50 MG TABLET PO SCH (09:31)
[2022-11-20] MEDS: ENOXAPARIN NA (PORCINE) 40 MG/0.4 ML DISP.SYRIN SQ SCH (09:31)
[2022-11-20 15:54] VITALS: BP 108/56; PULSE 78; TEMP 98.7
== END 2022-11-20 18:00 | DRG 562 ==
LOC: JER 16:13 → JERBED 20:04 → J4W 11-02 22:40 → J7W 11-10 18:25
PROVIDERS: ADMIT Internal Medicine; ATTEND Family Medicine
PROC: 2W3RX1Z Immobilization of Left Lower Leg using Splint (ICD-10-PCS; 2022-11-01)
PROC: 0QSHXZZ Reposition Left Tibia, External Approach (ICD-10-PCS; principal; 2022-11-15)
DX: S82.102A Unspecified fracture of upper end of left tibia, initial encounter for closed fracture (principal); E43 Unspecified severe protein-calorie malnutrition; N39.0 Urinary tract infection, site not specified; S82.402A Unspecified fracture of shaft of left fibula, initial encounter for closed fracture; I10 Essential (primary) hypertension; E78.5 Hyperlipidemia, unspecified; K21.9 Gastro-esophageal reflux disease without esophagitis; M54.16 Radiculopathy, lumbar region; D72.829 Elevated white blood cell count, unspecified; J43.9 Emphysema, unspecified; F17.210 Nicotine dependence, cigarettes, uncomplicated; Z85.3 Personal history of malignant neoplasm of breast; R91.8 Other nonspecific abnormal finding of lung field; D35.00 Benign neoplasm of unspecified adrenal gland; W19.XXXA Unspecified fall, initial encounter; Y93.9 Activity, unspecified; Y92.89 Other specified places as the place of occurrence of the external cause; Y99.9 Unspecified external cause status
CPT/HCPCS: 0241U-QW; 36415; 70450-TC; 70486-TC; 71275-TC; 72125-TC; 72170-TC-FY; 73562-TC-LT-FY; 73590-TC-LT-FY; 80053; 81003; 82550; 82553; 82803; 83605; 83735; 83880; 84484; 85025; 85027; 85379; 85610; 85730; 86850; 86900; 86901; 87040; 87086; 93005; 93010; 93971-TC; 97116-GP; 97162-GP; 99291; C9803-CS; J1644; Q9967; U0003; U0005